=== PATIENT | female | born 1975 | race Two or more races ===

== ENCOUNTER 2024-06-14 09:35 | Emergency (ER) | payer MEDICAID, OTHER ==
[~2024-06-14] VITALS: Ht 170.2 cm; Wt 86.0 kg
[2024-06-14 10:34] VITALS: BP 110/67; PULSE 102; RESP 20; TEMP 98.7; O2SAT 100
[2024-06-14] MEDS: HYDROcodone-ACET 7.5/325MG TAB PO ONE (10:56)
[2024-06-14] MEDS ORDERED: CYCL-837 PO (11:53)
[2024-06-14] MEDS ORDERED: IBUP-1454 PO (11:53)
== END 2024-06-14 11:58 | disposition home or self-care (01) ==
LOC: ER 09:35 → EDBD 09:35 → ER 11:58
DX: M54.59 Other low back pain (principal); Z79.1 Long term (current) use of non-steroidal anti-inflammatories (NSAID); V89.2XXA Person injured in unspecified motor-vehicle accident, traffic, initial encounter; Y93.89 Activity, other specified; Y92.89 Other specified places as the place of occurrence of the external cause; Y99.8 Other external cause status
CPT/HCPCS: 72100